=== PATIENT | female | born 1995 | race Caucasian/White ===

== ENCOUNTER 2017-03-20 21:08 | Emergency (ER) | payer OTHER ==
[~2017-03-20] VITALS: Ht 162.6 cm; Wt 115.5 kg
[~2017-03-20 21:08] MED LIST: AMOXICILLIN500 MG PO; BACTRIM,SEPT1 TABLET PO; BENADRYL25 MG PO; CHILDREN VITAM1 EACH PO; CLEOCIN300 MG PO; CLINDAMYCIN HC300 MG PO; DEXAMETHASONE4 MG PO; IBUPROFEN600 MG PO; KEFLEX500 MG PO; LEVAQUIN500 MG PO; LORTAB 5-325 M1 EACH PO; NAPROSYN500 MG PO; NORCO 5/3251 TABLET PO; PERCOCET 5/31 TABLET PO; PERCOCET 7.51 TABLET PO; VICODIN 5-3001 EACH PO
[2017-03-20 21:14] VITALS: BP 126/93
[2017-03-20] MEDS ORDERED: PREDNISONE20 MG PO (22:48)
[2017-03-20] MEDS ORDERED: ZITHROMAX Z-PA250 MG PO (22:48)
[2017-03-20] MEDS ORDERED: PROVENTIL,2.5 MG/3 M IH (22:51)
== END 2017-03-20 23:55 | disposition home or self-care (01) ==
LOC: EME 21:08
DX: J20.9 Acute bronchitis, unspecified (principal); J45.909 Unspecified asthma, uncomplicated; F17.200 Nicotine dependence, unspecified, uncomplicated
CPT/HCPCS: 99281; 99283

== ENCOUNTER 2017-03-25 19:34 | Emergency (ER) | payer OTHER ==
[~2017-03-25] VITALS: Ht 162.6 cm; Wt 114.3 kg
[~2017-03-25 19:34] MED LIST changes: +PREDNISONE20 MG PO; +PROVENTIL,2.5 MG/3 M IH; +ZITHROMAX Z-PA250 MG PO
[2017-03-25] MEDS ORDERED: VENTOLIN HFA18 GM IH (20:46)
[2017-03-25 21:14] VITALS: BP 138/85
== END 2017-03-25 21:14 | disposition home or self-care (01) ==
LOC: EME 19:34
DX: J45.901 Unspecified asthma with (acute) exacerbation (principal); F17.200 Nicotine dependence, unspecified, uncomplicated
CPT/HCPCS: 94664; 99281; 99284

== ENCOUNTER 2017-07-19 08:16 | Emergency (ER) | payer OTHER ==
[~2017-07-19] VITALS: Ht 162.6 cm; Wt 122.9 kg
[~2017-07-19 08:16] MED LIST changes: +VENTOLIN HFA18 GM IH
[2017-07-19] MEDS ORDERED: VENTOLIN HFA18 GM IH (09:21)
[2017-07-19] MEDS ORDERED: TESSALON PERLE100 MG PO (09:21)
[2017-07-19 09:34] VITALS: BP 132/86
== END 2017-07-19 09:40 | disposition home or self-care (01) ==
LOC: EME 08:16
DX: J45.909 Unspecified asthma, uncomplicated (principal); F17.200 Nicotine dependence, unspecified, uncomplicated
CPT/HCPCS: 99281; 99283